=== PATIENT | male | born 1985 | race Caucasian/White ===

== ENCOUNTER 2017-01-04 03:29 | Emergency (ER) | payer OTHER ==
[~2017-01-04] VITALS: Ht 172.7 cm; Wt 80.0 kg
[2017-01-04 03:31] VITALS: Ht 172.7 cm; Wt 80.0 kg
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
--- NOTE | 2017-01-04 04:20 | RADRPT ---
PROCEDURE: CT Brain without contrast. CLINICAL INDICATION: Headache, trauma TECHNIQUE: A CT of the brain was performed utilizing axial imaging from the skull base through the vertex without IV contrast. Multiplanar reformatted images were made. Images were reviewed on a [employer] workstation. The CTDIvol is 42.93 mGy and the DLP is 810.25 mGycm. One or more the following dose reduction techniques were utilized: Automated exposure control, adjus tment of the mA and / or kV according to patient's size, or use of iterative reconstruction techniqu e. COMPARISON: None FINDINGS: There is no intracranial hemorrhage, mass effect, or midline shift. No extra-axial fluid collection is seen. The ventricles and sulci are normal in size and configuration. The density of the brain is normal, and the hanks white matter differentiation appears well-preserved. Likely retention cysts i n bilateral maxillary sinuses the largest 1.6 cm in the inferior left maxillary sinus. No skull fra cture seen. IMPRESSION: 1. No evidence of acute intracranial pathology. 2. The brain is normal in appearance. RPTAT: HJES .Jimmie Dimas MD, MD Date Time Electronically viewed and signed by .Jimmie Dimas MD, on 01/04/2017 04:19 .S/
--- NOTE | 2017-01-04 04:29 | RADRPT ---
PROCEDURE: CT Cervical Spine. CLINICAL INDICATION: Trauma, neck pain TECHNIQUE: A CT of the cervical spine was performed utilizing thin section axial images from the skull base through the thoracic inlet. Sagittal and coronal reformatted images were made. The CTDI vol is 22.37 mGy and the DLP is 638.74 mGycm. One or more the following dose reduction techniques were utilized: Automated exposure control, adjus tment of the mA and / or kV according to patient's size, or use of iterative reconstruction techniqu e. COMPARISON: None. FINDINGS: There is a normal lordosis of the cervical spine. No vertebral body subluxation is seen. No fractu res are evident. The posterior elements are normally aligned. The surrounding soft tissues are nor mal in appearance. There is mild posterior vertebral body osteophyte formation at C5-6 and C6-7. The re is mild disk space narrowing at C5-6 and C6-7. There is mild impression on the right anterior the albert sac and spinal cord at C5-6 by the vertebral body osteophytes and disk complex. There is mild i mpression on the right anterior thecal sac by vertebral body osteophytes and disk complex at C6-7. L ikely retention cysts in bilateral maxillary sinuses. IMPRESSION: No acute abnormality seen. Please see above. RPTAT: HJES .Jimmie Dimas MD, Date Time Electronically viewed and signed by .Jimmie Dimas MD, on 01/04/2017 04:28 .S/
[2017-01-04] MEDS ORDERED: CYCL-319 PO (04:42)
[2017-01-04] MEDS ORDERED: HYDR-906 PO (04:42)
[2017-01-04] MEDS ORDERED: ACET500C5 PO (04:42)
== END 2017-01-04 05:04 | disposition home or self-care (01) ==
LOC: FTE 03:29
DX: S00.83XA Contusion of other part of head, initial encounter (principal); S16.1XXA Strain of muscle, fascia and tendon at neck level, initial encounter; V89.2XXA Person injured in unspecified motor-vehicle accident, traffic, initial encounter
CPT/HCPCS: 70450; 72125